=== PATIENT | female | born 1975 | race Caucasian/White ===

== ENCOUNTER 2017-06-26 05:00 | Inpatient (IN) | payer MEDICAID ==
[~2017-06-26] VITALS: Ht 154.9 cm; Wt 88.3 kg
[2017-06-26] MEDS ORDERED: LACTATED RINGER'S 1,000 ML IV SCH (05:26)
[2017-06-26] MEDS ORDERED: OXYTOCIN 30 UNITS/LR 500 ML IV PRN ×2 (05:30→09:00)
[2017-06-26] MEDS ORDERED: METHYLERGONOVINE 0.2 MG INJ IM PRN ×2 (05:30→09:00)
[2017-06-26] MEDS ORDERED: CEFAZOLIN 2 GM/50 ML (PMX) 50 ML IV SCH (05:30)
[2017-06-26] MEDS ORDERED: CARBOPROST 250 MCG INJ IM PRN ×2 (05:30→09:00)
[2017-06-26] MEDS ORDERED: MISOPROSTOL 200 MCG TAB PR PRN ×2 (05:30→09:00)
[2017-06-26 05:34] VITALS: Ht 154.9 cm; Wt 88.3 kg
[2017-06-26 05:49] LABS: BASOPHILS % 0.3 % (0.0-2.0); EOSINOPHILS # 0.1 10^3/ul (0.0-0.5); EOSINOPHILS % 0.8 % (0.0-7.0); HEMATOCRIT 33.1 % (37.0-47.0); HEMOGLOBIN 11.1 g/dl (12.0-16.0); LYMPHOCYTES # 2.4 10^3/ul (0.8-2.9); LYMPHOCYTES % 23.6 % (15.0-51.0); MEAN CORPUSCULAR HEMOGLOBIN 30.5 pg (29.0-33.0); MEAN CORPUSCULAR HGB CONC 33.5 g/dl (32.0-37.0); MEAN CORPUSCULAR VOLUME 90.9 fl (82.0-101.0); MEAN PLATELET VOLUME 11.2 fl (7.4-10.4); MONOCYTE # 0.6 10^3/ul (0.3-0.9); MONOCYTES % 5.8 % (0.0-11.0); PLATELET COUNT 190 10^3/UL (140-415); RED BLOOD COUNT 3.64 10^6/ul (4.20-5.40); RED CELL DISTRIBUTION WIDTH 13.6 % (11.5-14.5); WHITE BLOOD COUNT 10.1 10^3/ul (4.8-10.8)
[2017-06-26 06:09] LABS: INR 0.91; PROTIME 12.2 Sec (12.2-14.2)
[2017-06-26 06:10] LABS: PARTIAL THROMBOPLASTIN TIME 24.2 Sec (25.0-35.0)
[2017-06-26 06:12] VITALS: BP 131/81; PULSE 86
[2017-06-26] MEDS ORDERED: CITRIC ACID/SODIUM CITRATE 15 ML CUP ONE (07:25)
[2017-06-26] MEDS ORDERED: KETOROLAC 30 MG INJ ONE (07:40)
[2017-06-26] MEDS ORDERED: METOCLOPRAMIDE 10 MG INJ ONE (07:40)
[2017-06-26] MEDS ORDERED: ONDANSETRON 4 MG INJ ONE (07:40)
[2017-06-26] MEDS ORDERED: morphine SULFATE/PF (10 MG/10 ML) INJ ONE (07:40)
--- NOTE | 2017-06-26 07:48 | PREOPHP ---
DATE OF ADMISSION: 06/26/2017 HISTORY OF PRESENT ILLNESS: Ms. Paz Kimble is a 41-year-old 4, para 3, EDC 07/02/2017 , intrauterine at 39 weeks and 1 day gestational age, with a history of 3 previous C-secti ons in [place], admitted today for elective repeat delivery, declined vaginal bleeding or di scharge or contractions. Her care took place at [facility]. MEDICAL HISTORY: None. MEDICATIONS: vitamins. PAST SURGICAL HISTORY: x3 previous sections. OBSTETRIC HISTORY: x3, previous section. GYNECOLOGIC HISTORY: 12, regular 3 to 4 days. Denies any sexually transmitted diseases. Sexually active with 1 partner. SOCIAL HISTORY: Denies any smoking, drugs or alcohol. FAMILY HISTORY: None. REVIEW OF SYSTEMS: All within normal except history of present illness. PHYSICAL EXAMINATION: HEENT: Within normal. LUNGS: CTA bilateral. CARDIOVASCULAR: S1, S2, regular rhythm. ABDOMEN: Gravid, nontender. Negative CVA bilateral. Positive midline vertical scar secondary to a history of previous C-sections. EXTREMITIES: Negative edema. No calf tenderness. PELVIC: Vaginal exam deferred. ASSESSMENT: A 41-year-old 4, para 3, intrauterine at 39 weeks and 1 day gestation al age, previous x3, advanced maternal age. PLAN: Consent for a repeat delivery. Risks, benefits and alternatives explained. The pat ient crossmatched for 2 units. Dictated By: AFIA PAN/BAILEE Conf#: [id number] DID#: [id number]
--- NOTE | 2017-06-26 08:47 | SIPON ---
Date/Time of Note Date/Time of Note DATE: 06/26/17 TIME: 08:45 Operative Report Preoperative Diagnosis 41-year-old 4 para 3 interim at 39 weeks gestational age previous 3 advanced maternal age Postoperative Diagnosis Same Operation/Procedure Performed Repeat low transverse delivery Surgeon see signature line advertising assistant Dr. Tapia Anesthesia: spinal Estimated blood loss: other (500) Transfusion Required none Specimen none Grafts/Implants none Complications none AFIA DEVI MD Jun 26, 2017 08:47
[2017-06-26] MEDS ORDERED: ONDANSETRON 4 MG INJ IV PRN ×2 (09:00)
[2017-06-26] MEDS ORDERED: NALOXONE (0.4 MG/ML) INJ IV PRN (09:00)
[2017-06-26] MEDS ORDERED: LANOLIN 7 GM TUBE TOP PRN (09:00)
[2017-06-26] MEDS ORDERED: DIPHENHYDRAMINE 50 MG INJ IV PRN ×2 (09:00)
[2017-06-26] MEDS ORDERED: KETOROLAC 30 MG INJ IV PRN (09:00)
[2017-06-26] MEDS ORDERED: morphine (1 MG/ML) 10ML SYRINGE IV PRN ×3 (09:00)
[2017-06-26] MEDS ORDERED: morphine 4 MG/ML VIAL IV PRN (09:00)
[2017-06-26] MEDS: CEFAZOLIN 2 GM/50 ML (PMX) 50 ML IVPB SCH ×2 (09:00→17:34)
[2017-06-26] MEDS ORDERED: OXYCODONE/ACETAMINOPHEN (5/325) TAB PO PRN ×2 (09:00)
[2017-06-26] MEDS ORDERED: morphine 2 MG INJ IV PRN ×2 (09:00)
[2017-06-26] MEDS: OXYTOCIN 30 UNITS/LR 500 ML IV SCH ×2 (09:40→09:43)
[2017-06-26 11:30] VITALS: BP 111/50; RESP 18
[2017-06-26 12:00] VITALS: BP 113/63; PULSE 69; RESP 18
[2017-06-26] MEDS: LACTATED RINGER'S 1,000 ML IV SCH ×3 (13:30→21:53)
[2017-06-26] MEDS ORDERED: ACCU-CHEK XX SCH (13:50)
[2017-06-26 15:40] VITALS: BP 101/60; PULSE 74; RESP 18
[2017-06-26 20:00] VITALS: BP 105/57; PULSE 83; RESP 18
[2017-06-27] VITALS: BP 107/56; PULSE 89; RESP 18
[2017-06-27] MEDS: CEFAZOLIN 2 GM/50 ML (PMX) 50 ML IVPB SCH (01:36)
[2017-06-27 04:10] VITALS: BP 127/78; PULSE 87; RESP 18
[2017-06-27] MEDS: LACTATED RINGER'S 1,000 ML IV SCH ×2 (06:09→16:47)
[2017-06-27 08:10] VITALS: BP 112/68; PULSE 80; RESP 18
[2017-06-27] MEDS: IBUPROFEN 600 MG TAB PO SCH ×4 (09:00→23:51)
[2017-06-27 10:30] LABS: BASOPHILS % 0.2 % (0.0-2.0); EOSINOPHILS % 0.4 % (0.0-7.0); HEMATOCRIT 25.6 % (37.0-47.0); HEMOGLOBIN 8.2 g/dl (12.0-16.0); LYMPHOCYTES # 1.6 10^3/ul (0.8-2.9); LYMPHOCYTES % 15.1 % (15.0-51.0); MEAN CORPUSCULAR HEMOGLOBIN 29.4 pg (29.0-33.0); MEAN CORPUSCULAR VOLUME 91.8 fl (82.0-101.0); MEAN PLATELET VOLUME 11.4 fl (7.4-10.4); MONOCYTE # 0.5 10^3/ul (0.3-0.9); MONOCYTES % 4.6 % (0.0-11.0); NEUTROPHIL # 8.4 10^3/ul (1.6-7.5); NEUTROPHILS % 79.2 % (39.0-77.0); PLATELET COUNT 135 10^3/UL (140-415); RED BLOOD COUNT 2.79 10^6/ul (4.20-5.40); WHITE BLOOD COUNT 10.6 10^3/ul (4.8-10.8)
--- NOTE | 2017-06-27 14:47 | OPR ---
DATE OF OPERATION: 06/26/2017 PRIMARY DIAGNOSIS: A 41-year-old 4, para 3, intrauterine at 39 weeks and 1 day ge stational age, previous x3, advanced maternal age. POSTOPERATIVE DIAGNOSIS: A 41-year-old 4, para 3, intrauterine at 39 weeks and 1 day gestational age, previous x3, advanced maternal age. OPERATION PERFORMED: Repeat low transverse delivery. SURGEON: Alan Aden MD. SUPERVISOR TELLERS: Dr. Tapia. COMPLICATIONS: Spinal. ESTIMATED BLOOD LOSS: 500 mL. FINDINGS: A viable female, 9 and 9 respectively at 1 and 5 minutes, weight 6 pounds 12 ounces . DESCRIPTION OF PROCEDURE: After explaining the risks, benefits, and alternatives, the patient and c onsent signed in chart. The patient was taken to the operating room where spinal anesthesia was fou nd to be adequate. She was then prepared and draped in normal sterile fashion in dorsal supine posi tion with a leftward tilt. A Pfannenstiel skin incision was then made with a scalpel and carried to the underlying layer of fascia. The fascia was incised in the midline, and the incision was extend ed laterally with Del Angel scissors. The superior aspect of the fascial incision was grasped with curve d clamps, elevated, and the underlying rectus muscles dissected off bluntly. Attention was then tur christopher to the inferior aspect of the incision, which in similar fashion was grasped, tented up with cur laverne clamps. and the rectus muscles dissected off bluntly. The rectus muscles were in midl ine, peritoneum identified, tented up, entered sharply with Metzenbaum scissors. The peritoneal inc ision was then extended superiorly to get good visualization of bladder. The bladder blade was then inserted and the vesicouterine peritoneum identified, grasped with pickups, and entered sharply wit h Metzenbaum scissors. This incision was extended laterally and a bladder flap created digitally. The bladder blade was then reinserted, and the lower segment incised in transverse fashion with a sc alpel. The uterine incision was extended laterally. The bladder blade was removed, and the ' s head delivered atraumatically. The nose and mouth were suctioned and cord clamped and cut. The i nfant was handed off to awaiting planer setter. The placenta was then removed. The uterus was exter iorized and cleared of all clots and debris. The uterine incision was repaired with 1-0 chromic in a running locked fashion. A second layer of the same suture was used for imbrication and obtained e xcellent hemostasis. The uterus was returned to the abdomen. The gutters were cleared of all clots . The peritoneum and rectus abdominis muscles were reapproximated with 3-0 Vicryl in an interrupted fashion. The subcutaneous tissue was reapproximated with 2-0 plain gut in a running fashion. The fascia was reapproximated with 0 Vicryl in a running fashion. The skin was closed with mary. Th e patient tolerated procedure well. All counts were correct. The patient was taken to recovery [facility] in stable condition. Dictated By: ALAN PAN/BAILEE Conf#: [id number] DID#: [id number]
[2017-06-27 16:00] VITALS: BP 106/62; PULSE 70; RESP 18
--- NOTE | 2017-06-27 17:51 | PN ---
Date/Time of Note Date/Time of Note DATE: 06/27/17 TIME: 17:47 Assessment/Plan VTE Prophylaxis VTE Prophylaxis Intervention: ambulation Lines/Catheters IV Catheter Type (from Nrsg): Peripheral IV Subjective 24 Hr Interval Summary Free Text/Dictation Anesthesia note A 41 year female after duramorph spinal is doing well, pain is controlled. no n/ v, headache,itching, back pain. no sensory or motor deficit. care per surgery. Exam/Review of Systems Vital Signs Vitals Vital Signs Date Time Temp Pulse Resp B/P Pulse Ox O2 Delivery O2 Flow Rate FiO2 06/27/17 16:00 98.3 70 18 106/62 Room Air 06/26/17 11:30 97 Intake and Output 06/26/17 06/26/17 06/27/17 15:00 23:00 07:00 Intake Total 4350 ml 990 ml 1050 ml Output Total 170 ml 900 ml 2000 ml Balance 4180 ml 90 ml -950 ml Results Result Diagram: 06/27/17 0937 06/26/17 0520 Results 24 hrs Laboratory Tests Test 06/27/17 09:37 White Blood Count 10.6 Red Blood Count 2.79 #L Hemoglobin 8.2 #L Hematocrit 25.6 #L Mean Corpuscular Volume 91.8 Mean Corpuscular Hemoglobin 29.4 Mean Corpuscular Hemoglobin Concent 32.0 Red Cell Distribution Width 14.0 Platelet Count 135 #L Mean Platelet Volume 11.4 H Neutrophils % 79.2 H Lymphocytes % 15.1 Monocytes % 4.6 Eosinophils % 0.4 Basophils % 0.2 Nucleated Red Blood Cells % 0.0 Neutrophils # 8.4 H Lymphocytes # 1.6 Monocytes # 0.5 Eosinophils # 0.0 Basophils # 0.0 Nucleated Red Blood Cells # 0.0 Medications Medications Current Medications Lactated Ringer's (Lr) 1,000 ml @ 125 mls/hr Q8H IV Last administered on t 06:09; Admin Dose 125 MLS/HR; Start 06/26/17 at 08:47 Oxycodone/ Acetaminophen (Percocet (5/ 325)) 1 tab Q4H PRN PO PAIN LEVEL 4-6; Start 06/26/17 at 09:00 Oxycodone/ Acetaminophen (Percocet (5/ 325)) 2 tab Q4H PRN PO PAIN LEVEL 7-10; Start 06/26/17 at 09:00 Ibuprofen 600 mg 600 mg Q6 PO Last administered on 06/27/17t 12:52; Admin Dose 600 MG; Start 06/27/17 at 09:00 Oxytocin/Lactated Ringer's 500 ml @ 0 mls/hr ONCE PRN IV For Hemorrhage Management; Start 06/26/17 at 09:00 Methylergonovine Maleate (Methergine) 0.2 mg ONCE PRN IM VAGINAL BLEEDING; Start 06/26/17 at 09:00 Carboprost Tromethamine (Hemabate) 250 mcg ONCE PRN IM VAGINAL BLEEDING; Start 06/26/17 at 09:00 Misoprostol (Cytotec) 1,000 mcg ONCE PRN OR VAGINAL BLEEDING; Start 06/26/17 at 09:00 HEMANT OQUENDO MD Jun 27, 2017 17:51
--- NOTE | 2017-06-27 18:29 | QN ---
Documentation Comment Progress note postop day 1 Patient seen and evaluated awake alert oriented 3 denies any headache nausea vomiting shortness of breath visual changes palpitations Vital signs stable Abdomen dressing clean dry negative distention nontender uterine fundus below umbilicus firm Extremity negative edema no calf tenderness Assessment status post repeat low transverse delivery postop day 1 stable afebrile Plan iron supplement Repeat CBC in a.m. AFIA DEVI MD Jun 27, 2017 18:29
[2017-06-27 19:35] VITALS: BP 115/70; PULSE 79; RESP 18
[2017-06-27] MEDS: FERROUS SULFATE (EC) 325 MG TAB PO SCH (21:02)
[2017-06-28] MEDS: LACTATED RINGER'S 1,000 ML IV SCH ×3 (00:47→16:47)
[2017-06-28 04:20] VITALS: BP 108/73; PULSE 75; RESP 18
[2017-06-28] MEDS: IBUPROFEN 600 MG TAB PO SCH ×3 (06:17→17:42)
[2017-06-28 08:30] VITALS: BP 121/70; PULSE 67; RESP 18
[2017-06-28 08:51] LABS: BASOPHILS % 0.3 % (0.0-2.0); EOSINOPHILS # 0.2 10^3/ul (0.0-0.5); EOSINOPHILS % 2.1 % (0.0-7.0); HEMATOCRIT 25.1 % (37.0-47.0); LYMPHOCYTES # 1.9 10^3/ul (0.8-2.9); LYMPHOCYTES % 18.6 % (15.0-51.0); MEAN CORPUSCULAR HEMOGLOBIN 29.6 pg (29.0-33.0); MEAN CORPUSCULAR HGB CONC 31.9 g/dl (32.0-37.0); MONOCYTE # 0.6 10^3/ul (0.3-0.9); MONOCYTES % 5.5 % (0.0-11.0); NEUTROPHIL # 7.4 10^3/ul (1.6-7.5); NEUTROPHILS % 73.1 % (39.0-77.0); PLATELET COUNT 157 10^3/UL (140-415); RED CELL DISTRIBUTION WIDTH 14.1 % (11.5-14.5); WHITE BLOOD COUNT 10.2 10^3/ul (4.8-10.8)
[2017-06-28] MEDS: FERROUS SULFATE (EC) 325 MG TAB PO SCH ×2 (09:50→20:57)
[2017-06-28 16:00] VITALS: BP 116/63; PULSE 76
--- NOTE | 2017-06-28 18:27 | QN ---
Documentation Comment Progress note postop day 2 Patient seen and evaluated awake alert oriented 3 denies any headache nausea vomiting shortness of breath visual changes palpitations Vital signs stable Abdomen clean dry intact negative distention nontender uterine fundus below umbilicus firm Extremity negative edema no calf tenderness Assessment status post repeat low transverse delivery postop day 1 stable afebrile Plan discharge home in am AFIA DEVI MD Jun 28, 2017 18:27
--- NOTE | 2017-06-28 18:28 | PD.PPDC ---
TELEVISION NEWS PRODUCER Discharge Instruction Condition Patient Condition: Good Diet Diet: Resume Regular Diet Activity/Restrictions Activity: Normal Activity May Shower Restrictions: No Exercising No Lifting No Driving No Sexual Activity Nothing in the Vagina No [place] No Tampons, douche Wound/Drain Care Instructions Wound/Drain Care Instructions: Wash with soap and water Keep clean and dry Follow-up Follow-up with Physician: 4, Day/Days Return to clinic for AUTOMOTIVE TECHNICIAN Instructions: Fever greater than 101 Chills Worsening abdominal pain Excessive Vaginal Bleeding More than 2 pads per hour Unable to tolerate diet OB Instructions: Breast Tenderness Depression Blurried Vision Headache Surgical Instructions: Incisional Drainage Incisional Redness AFIA DEVI MD Jun 28, 2017 18:28
[2017-06-28 19:35] VITALS: BP 125/60; PULSE 77; RESP 18
--- NOTE | 2017-06-28 20:54 | DS ---
DATE OF ADMISSION: 06/26/2017 DATE OF DISCHARGE: 06/29/2017 PRIMARY DIAGNOSIS: A 41-year-old 4, para 3, intrauterine at 39 weeks and 1 day ge stational age, previous x3, advanced maternal age. PROCEDURE: Repeat low transverse delivery. CONDITION ON DISCHARGE: Stable. ACTIVITY: None per vagina, no heavy lifting x6 weeks. DIET: Regular. MEDICATIONS ON DISCHARGE: 1. Motrin. 2. Percocet. 3. Iron. 4. Colace. DISCHARGE SUMMARY: The patient is a 41-year-old 4, para 4, status post repeat low transvers e delivery on 06/26/2017. She had a viable female, 9 and 9 respectively at 1 and 5 m inutes, weight 6 pounds 12 ounces. She had an uneventful postop day 1 and 2. She will be discharge d on postop day 3. She is ambulating, tolerating diet, positive flatulence, positive bowel movement . She will follow up in the office this Saturday to remove her mary. Dictated By: AFIA PAN/BAILEE Conf#: [id number] DID#: [id number]
[2017-06-29] MEDS: IBUPROFEN 600 MG TAB PO SCH ×3 (00:23→12:49)
[2017-06-29 04:58] VITALS: BP 113/61; PULSE 73; RESP 16
[2017-06-29 08:00] VITALS: BP 126/62; PULSE 86; RESP 18
[2017-06-29] MEDS: FERROUS SULFATE (EC) 325 MG TAB PO SCH (09:02)
== END 2017-06-29 13:51 | disposition home or self-care (01) | DRG 766 ==
LOC: L-D 05:00 → PP1 11:24
PROVIDERS: ADMIT Obstetrics & Gynecology; ATTEND Obstetrics & Gynecology
PROC: 3E0P3VZ Introduction of Hormone into Female Reproductive, Percutaneous Approach (ICD-10-PCS; 2017-06-26)
PROC: 10D00Z1 Extraction of Products of Conception, Low, Open Approach (ICD-10-PCS; principal; 2017-06-26 07:30)
DX: O34.211 Maternal care for low transverse scar from previous cesarean delivery (principal); Z37.0 Single live birth; Z3A.39 39 weeks gestation of pregnancy
CPT/HCPCS: 82947; 85025; 85610; 85730; 86592; 86850; 86900; 86901; 86920; 87340; 99464; J0690; J1200; J1885; J2210; J2274; J2405; J2590; J2765; J7120